=== PATIENT | female | born 1985 | race Hispanic/Latino ===

== ENCOUNTER 2018-06-11 06:09 | Day surgery (SDC) | payer OTHER ==
[2018-06-05 16:04] VITALS: BMI 27.4
[2018-06-11 07:18] LABS: BASO # 0.1 K/uL (0.0-0.2); BASO % 0.8 % (0.0-2.0); EOS # 0.3 K/uL (0.0-0.7); EOS % 4.2 % (0.0-4.0); HEMOGLOBIN 12.8 g/dL (12.0-16.0); LYMPH # 3.8 K/uL (1.0-4.3); LYMPH % 50.3 % (20.0-40.0); MEAN CORPUSCULAR HEMOGLOBIN 31.3 pg (27.0-31.0); MEAN CORPUSCULAR HGB CONC 34.5 g/dL (33.0-37.0); MEAN PLATELET VOLUME 10.2 fl (7.2-11.7); MONO # 0.6 K/uL (0.0-0.8); MONO % 8.2 % (0.0-10.0); NEUT # 2.8 K/uL (1.8-7.0); NEUT % 36.5 % (50.0-75.0); NRBC % 0.1 % (0.0-0.0); RBC 4.07 Mil/uL (3.80-5.20); RED CELL DISTRIBUTION WIDTH 12.8 % (11.5-14.5); WHITE BLOOD COUNT 7.6 K/uL (4.8-10.8)
[2018-06-11] MEDS ORDERED: Silver Nitrate Topical - Stick ONE (07:26)
[2018-06-11] MEDS ORDERED: Bupivacaine HCl 0.25% PF (30 ml) Inj ONE (07:27)
[2018-06-11] MEDS ORDERED: Rocuronium 10 mg/ml (5 ml) ONE (07:31)
[2018-06-11] MEDS ORDERED: Succinylcholine 200 mg/10 ml Inj IV ONE (07:31)
[2018-06-11] MEDS ORDERED: Propofol 10 mg/ml Inj (20 ML) ONE (07:31)
[2018-06-11] MEDS ORDERED: Lidocaine 4% (Laryng-O-Jet) Kit MM ONE (07:32)
[2018-06-11] MEDS ORDERED: Lactated Ringer's 1,000 ML IV ONE ×2 (07:55→08:35)
[2018-06-11] MEDS ORDERED: Midazolam 2 MG/2 ML VIAL ONE (08:19)
[2018-06-11] MEDS ORDERED: ePHEDrine 50 mg/ml Inj ONE (08:19)
[2018-06-11] MEDS ORDERED: Dexamethasone 4 mg/1 ml ONE (08:59)
[2018-06-11] MEDS ORDERED: Neostigmine 1:1000 (1 mg/ml) Inj ONE (08:59)
[2018-06-11] MEDS ORDERED: Oxycodone/Acetaminophen 5/325 mg Tab PO PRN ×2 (09:59)
[2018-06-11] MEDS ORDERED: Lactated Ringer's 1,000 ML IV SCH ×2 (10:00→10:15)
[2018-06-11] MEDS ORDERED: HYDROmorphone 0.5 mg/0.5 ml ISec IVP PRN (10:01)
--- NOTE | 2018-06-11 10:13 | OP ---
PROCEDURE DATE: 06/11/2018 SURGEON: Danilo Palmer MD WELFARE SPECIALIST: Gerard Lopes MD ANESTHESIOLOGIST: MD Tatiana Mercado TYPE OF ANESTHESIA: General endotracheal. PREOPERATIVE DIAGNOSES: 1. pelvic pain. 2. abdominal pain. 3. Gastrointestinal and genitourinary symptoms 4. rule out pelvic endometriosis. POSTOPERATIVE DIAGNOSES: 1. pelvic pain. 2. abdominal pain. 3. Gastrointestinal and genitourinary symptoms 4. rule out pelvic endometriosis. PROCEDURES PERFORMED: 1. Exam under anesthesia. 2. Video assisted hysteroscopy. 3. Cystoscopy. 4. Bilateral ureteral catheterization and injection of IC-Green dye. 5. Robotic da Lida operative laparoscopy. 6. Treatment of endometriosis. 7. Excision of endometriosis. Dr Lopes to dictate excision of perirectal endometriotic implant COMPLICATIONS: None. SAMPLES SENT: 1. Left periureteral endometriosis. 2. Right periureteral endometriosis. 3. Rectal endometriosis, anterior. INDICATION FOR THE PROCEDURE AND CONSENT: The patient had ahistory of pelvic pain, dysmenorrhea, dyspareunia, abdominal pain, and bladder pain. The patient had been thoroughly evaluated and counseled regarding the pros and cons of the procedure, the reasonable alternatives, and possible complications. She understood and accepted the risks involved. Literature was provided to the patient. The patient was understanding and given her history and per surgical exam, she was at high risk in an average patient. She accepted all the risks involved, and all the questions had been answered to her satisfaction. FINDINGS OF SURGERY: Genitalia: Normal external genitalia, cervix without lesion and polyps. Hysteroscopy: Hysteroscopy shows a clear uterine cavity with no polyps or masses noticed. Cystoscopy: The cystoscopy was performed to rule out endometriosis and also any interstitial cystitis and also injury. The bladder was normal with no evidence of stone, trigonitis, or cystitis. A positive jet flow was identified in both ureters. Laparoscopy: The upper abdomen appeared to be normal. Gallbladder was normal. Liver edges appeared to be normal. Ascending colon and transverse were normal. The appendix appeared to benormal . Both fallopian tubes appeared to be patent, . There was also evidence of mild hydroureters.Endometriosis implants were noted in the pelvis DESCRIPTION OF THE PROCEDURE: Initiation of the case: After adequate anesthesia was obtained, the patient was placed in the dorsal lithotomy position, and with extreme care, placement of the patient with hyperextension and hyperflexing of the hips. At this point, the patient was prepped and draped. The surgeon was gowned and gloved. A timeout was taken according to the hospital procedure and the procedure was started. At this point, we performed cystoscopy, bilateral ureteral catheterization. A cystoscope was inserted into the bladder under direct visualization and the bladder was visualized. The bladder was free of lesions and tumors. There was no evidence of interstitial cystitis, and there was only mild amount of trigonitis. At this point, both ureters were identified and appeared to be in their normal anatomical position. At this point, utilizing an open 5-Romanian open-ended catheter, the left ureter was catheterized all the way to the distal ureter, and 5 mL of IC-Green was injected into this ureter. Similarly, the contralateral ureter was catheterized all the way to the distal ureter, and 5 mL of IC-Green was injected into the distal ureter. At this point, the stents were removed, and the cystoscope was removed, and the 16-Romanian Hughes was inserted into the bladder. At this point, we proceeded with a hysteroscopy. A speculum was placed into vagina, and the anterior lip of the cervix was grasped. The cervix was dilated, and a hysteroscope was inserted into the cavity. The cavity appeared to be of normal size with no evidence of polyps, cysts, adenomyosis, or fibroids. At this point, we proceeded with placement of a trocar and docking of the da Lida Xi robot. The surgeon was re-gowned and gloved, and open laparoscopy was performed by making incision in the umbilicus and the fascia was incised. The peritoneum was entered in a blunt fashion, and the cannula was inserted under direct visualization. The abdomen was insufflated, and under direct visualization, three additional ports were inserted in the left upper quadrant, left mid quadrant, and right upper quadrant. At this point, the da Lida Xi robot was brought into the field and docked, and the instruments were inserted under direct visualization. All this with extreme care not to injure the bowel or another area. As per dictation, the upper abdomen appeared to be normal with no evidence of any lesions. At this point, we proceeded with treatment of endometriosis and excision of endometriosis. On the left hand side, endometriosis left ovarian fossa was excised. In a very progressive step by step fashion, we dissected off fibrosis containing endometriosis and freed up the whole area. The ureters which had been lateralized. Areas of fibrosis and endometriosis were also identified in the posterior cul-de-sac and in the rectovaginal space which was also affected with endometriosis and fibrosis. At this point, dr lopes proceeded with the excision of perirectal endometriosis. . At this point, endometriosis was also excised from the right uterosacral area which also was affected by fibrosis and endometriosis. At this point, it was checked for hemostasis and appeared to be excellent. Both fallopian tubes were in good condition and patent. At this point we proceeded with destruction of inflammatory areas utilizing the j-plasma energy device. After he was done we checked for hemostasis and organ integrity and all was normal. At this point, the da Lida Xi robot was removed. The abdomen was desufflated, and the incisions were closed in layers with 0 PDS for the fascia and 4-0 Monocryl for the skin. At the end of the procedure, all tips and instrument counts were correct. The patient tolerated the procedure well and was taken to the recovery room in excellent condition. Estela RADER, Danilo LOUIS
[2018-06-11] MEDS ORDERED: HYDROmorphone 0.5 mg/0.5 ml ISec ONE (10:16)
[2018-06-11 10:22] VITALS: RESP 18
--- NOTE | 2018-06-11 11:02 | PCM.SURG1 ---
Surgeon's Initial Post Op Note - Surgeon's Notes Surgeon: Dr. Gerard Lopes Glass Etcher: Dr. barron Palmer Type of Anesthesia: General Endo Anesthesia Administered By: Dr. Mercado Pre-Operative Diagnosis: abdominal pain and endometriosis Operative Findings: intestinal involvement Post-Operative Diagnosis: same Operation Performed: 1-Excision perirectal endometriosis Specimen/Specimens Removed: perirectal endometriosis Estimated Blood Loss: EBL {In ML}: 5 Drains Used: No Drains Post-Op Condition: Good Date of Surgery/Procedure: 06/11/18 Time of Surgery/Procedure: 09:00
--- NOTE | 2018-06-11 11:35 | OP ---
OPERATIVE REPORT -Operative Report Surgeon: Dr. Gerard Lopes Sight Effects Specialist: Dr. barron Palmer Type of Anesthesia: General Endo Anesthesia Administered By: Dr. Mercado Pre-Operative Diagnosis: abdominal pain and endometriosis Operative Findings: intestinal involvement Post-Operative Diagnosis: same Operation Performed: 1-Excision perirectal endometriosis Procedure/Operation Description: 1-Excision perirectal endometriosis. Brief History: This 32 year old woman was already brought to the operating room by Dr. Palmer and the procedure had been initiated when he noticed endometriosis involvement of the rectum. Intraoperative consultation was obtained. Description of the procedure: The operation had already been initiated by Dr. Palmer (separate dictation Dr. Palmer). After taking control of the robotic console the lesion in question was circumscribed with electrocautery and excided en-bloc with blunt and sharp disection while maintaining the integrity of the rectal wall. The lesion was appropriately marked and sent to pathology as a separate specimen. The operation was then turned over to Dr. Palmer (separate dictation). Specimen/Specimens Removed: perirectal endometriosis Estimated Blood Loss: EBL {In ML}: 5 Drains Used: No Drains Post-Op Condition: Good Date of Surgery/Procedure: 06/11/18 Time of Surgery/Procedure: 09:00 Estimated Blood Loss:___ cc Complications: none Discharge & Condition: stable MTDD
[2018-06-11 12:46] VITALS: TEMP 98; O2SAT 99
[2018-06-11 15:53] VITALS: BP 110/70; PULSE 76
== END 2018-06-11 16:50 | disposition home or self-care (01) ==
LOC: H.OPSURG 06:09
PROVIDERS: ATTEND Obstetrics & Gynecology Reproductive Endocrinology
DX: R10.2 Pelvic and perineal pain (principal); N80.5 Endometriosis of intestine; N94.6 Dysmenorrhea, unspecified
CPT/HCPCS: 36415; 45171; 52332; 58662; 85025; 86850; 86900; 88305; C1729; J0330; J0690; J1100; J1170; J2001; J2250; J2405; J2704; J2710; J3010; J7030; J7120